=== PATIENT | female | born 1945 | race Two or more races ===

== ENCOUNTER 2018-05-18 05:21 | Inpatient (IN) | payer MEDICARE, MEDICAID ==
[~2018-05-18] VITALS: Ht 160 cm; Wt 68.1 kg
[2018-05-18 07:02] LABS: Basophils # (auto) 0 uL; Basophils % (auto) 0.2 % (0.0-2.0); Eosinophils # (auto) 0.1 uL; Eosinophils % (auto) 1.2 % (0.0-7.0); Hematocrit 32.2 % (36.0-46.0); Hemoglobin 10.7 g/dL (12.2-16.2); INR 1.1 (0.9-1.15); Lymphocytes # (auto) 0.3 uL; Lymphocytes % (auto) 2.4 % (10.0-50.0); Mean Corpuscular Hemoglobin 30.1 pg (28.0-32.0); Mean Corpuscular Hgb Conc. 33.2 g/dL (32.0-36.0); Mean Corpuscular Volume 90.5 fL (80.0-100.0); Monocytes # (auto) 0.3 uL; Monocytes % (auto) 2.6 % (0.0-12.0); Neutrophils # (auto) 10.5 uL; Neutrophils % (auto) 93.6 % (37.0-80.0); Partial Thromboplastin Time 30.8 sec (23.78-33.04); Platelet Count (auto) 132 10^3/uL (140-450); Prothrombin Time 11.7 sec (9.27-12.13); Red Blood Cells 3.56 10^6/uL (4.0-5.20); White Blood Cell 11.2 10^3/uL (4.4-10.8)
[2018-05-18 07:06] LABS: Alanine Aminotransferase 387 U/L (13-56); Albumin 2.9 g/dL (3.4-5.0); Amylase 24 U/L (25-115); Anion Gap 12 (5-15); Aspartate Aminotransferase 270 U/L (15-37); Blood Urea Nitrogen 52 mg/dL (7-18); Calcium 8.4 mg/dL (8.5-10.1); Carbon Dioxide 20 mmol/L (21-32); Chloride 107 mmol/L (98-107); GFR African American 26 mL/min; GFR Non-African American 21 mL/min; Glucose 173 mg/dL (74-106); Lipase 123 U/L (73-393); Magnesium 2.3 mg/dL (1.6-2.6); Potassium 4.4 mmol/L (3.5-5.1); Sodium 139 mmol/L (136-145)
[2018-05-18 07:11] LABS: Alkaline Phosphatase 258 U/L (45-117); Bilirubin, Total 3.7 mg/dL (0.2-1.0); Total Protein 6.7 g/dL (6.4-8.2)
[2018-05-18] MEDS ORDERED: SODIUM CHLORIDE 0.9% 1,000 ML IV ONE (07:15)
[2018-05-18] MEDS ORDERED: DEXTROSE (50%) 50ML SYRG IV PRN (10:00)
[2018-05-18] MEDS ORDERED: TEMAZEPAM 15 MG CAP PO PRN (10:00)
[2018-05-18] MEDS ORDERED: NITROGLYCERIN 0.4 MG SL TAB SL PRN (10:00)
[2018-05-18] MEDS ORDERED: MORPHINE SULF(PF) 0.5MG/ML 10ML VIAL IV PRN (10:00)
[2018-05-18] MEDS ORDERED: PROMETHAZINE HCL 25 MG/ML 1ML IV PRN (10:00)
[2018-05-18] MEDS ORDERED: NALBUPHINE HCL 10 MG/1ml INJECTION IV PRN ×2 (10:00)
[2018-05-18] MEDS ORDERED: cefTRIAXone 1GM/10ml IVPUSH 10 ML IV ONE (10:00)
[2018-05-18] MEDS ORDERED: LORazepam 0.5 MG TAB PO PRN (10:00)
[2018-05-18] MEDS ORDERED: PIPERACILLIN-TAZOB 2.25GM 50 ML IV ONE (10:15)
[2018-05-18] MEDS: SODIUM CHLORIDE 0.9% 1,000 ML IV SCH ×2 (12:11→19:46)
[2018-05-18] MEDS: PANTOPRAZOLE 40 MG TAB PO SCH (12:40)
[2018-05-18] MEDS: ACCU-CHEK COMFORT CURVE STRIP VI SCH ×3 (12:45→23:38)
[2018-05-18] MEDS: InsuLIN REG 1unit/0.01ml Soln (100units/ml) SC SCH ×3 (12:50→23:38)
[2018-05-18 13:17] LABS: Hematocrit 30.6 % (36.0-46.0); Hemoglobin 9.9 g/dL (12.2-16.2)
[2018-05-18] MEDS: APIXABAN 5 MG TAB PO SCH ×2 (13:50→23:38)
[2018-05-18] MEDS: metroNIDAZOLE 500MG/100ML 100 ML IV SCH ×3 (14:31→23:38)
[2018-05-18] MEDS: PIPERACILLIN-TAZOB 2.25GM 50 ML IV SCH (18:00)
[2018-05-18 18:21] VITALS: BP 153/68
[2018-05-18 19:55] LABS: Hematocrit 29.8 % (36.0-46.0); Hemoglobin 9.7 g/dL (12.2-16.2)
[2018-05-18 22:00] VITALS: BP 156/68
[2018-05-19] VITALS (7 sets, daily range): BP systolic 146–164; BP diastolic 57–93
[2018-05-19] MEDS: PIPERACILLIN-TAZOB 2.25GM 50 ML IV SCH ×4 (01:08→18:21)
[2018-05-19 01:15] LABS: Hematocrit 27.3 % (36.0-46.0); Hemoglobin 9.1 g/dL (12.2-16.2)
[2018-05-19] MEDS: metroNIDAZOLE 500MG/100ML 100 ML IV SCH ×4 (05:21→23:56)
[2018-05-19] MEDS: SODIUM CHLORIDE 0.9% 1,000 ML IV SCH ×2 (05:46→15:46)
[2018-05-19] MEDS: InsuLIN REG 1unit/0.01ml Soln (100units/ml) SC SCH ×4 (05:57→23:57)
[2018-05-19] MEDS: ACCU-CHEK COMFORT CURVE STRIP VI SCH ×4 (05:58→23:57)
[2018-05-19 07:16] LABS: Basophils # (auto) 0.1 uL; Basophils % (auto) 0.4 % (0.0-2.0); Eosinophils # (auto) 0.5 uL; Hematocrit 29.5 % (36.0-46.0); Hemoglobin 9.7 g/dL (12.2-16.2); Lymphocytes # (auto) 0.8 uL; Lymphocytes % (auto) 5.7 % (10.0-50.0); Mean Corpuscular Hemoglobin 29.7 pg (28.0-32.0); Mean Corpuscular Hgb Conc. 32.9 g/dL (32.0-36.0); Mean Corpuscular Volume 90.1 fL (80.0-100.0); Monocytes # (auto) 0.6 uL; Monocytes % (auto) 4.4 % (0.0-12.0); Neutrophils # (auto) 11.5 uL; Neutrophils % (auto) 85.5 % (37.0-80.0); Platelet Count (auto) 138 10^3/uL (140-450); Red Blood Cells 3.27 10^6/uL (4.0-5.20); Red Cell Distribution Width 18.1 % (11.8-14.3); White Blood Cell 13.4 10^3/uL (4.4-10.8)
[2018-05-19 08:38] LABS: Albumin 2.3 g/dL (3.4-5.0); Amylase 22 U/L (25-115); BUN/Creatinine Ratio 20.5; Bilirubin, Total 1.5 mg/dL (0.2-1.0); Calcium 8.1 mg/dL (8.5-10.1); Lipase 83 U/L (73-393); Potassium 4.2 mmol/L (3.5-5.1); Total Protein 5.9 g/dL (6.4-8.2)
[2018-05-19] MEDS ORDERED: cefTRIAXone 1GM/10ml IVPUSH 10 ML IV SCH (09:00)
[2018-05-19] MEDS: APIXABAN 5 MG TAB PO SCH ×3 (10:00→22:41)
[2018-05-19] MEDS: PANTOPRAZOLE 40 MG TAB PO SCH (10:13)
[2018-05-19] MEDS ORDERED: AMLO5TAB2 PO (12:02)
[2018-05-19] MEDS ORDERED: POTA10TA34 PO (12:02)
[2018-05-19] MEDS ORDERED: LORA-654 PO (12:02)
[2018-05-19] MEDS ORDERED: POTA10TA51 PO (12:02)
[2018-05-19] MEDS ORDERED: FURO40TA4 PO (12:02)
[2018-05-19] MEDS ORDERED: SIMV-13 PO (12:02)
[2018-05-19] MEDS ORDERED: METO25TA5 PO (12:02)
[2018-05-19] MEDS ORDERED: METF-370 PO (12:02)
[2018-05-19] MEDS ORDERED: RIVA10TA PO (12:02)
[2018-05-19] MEDS ORDERED: LEVO125T7 PO (12:02)
[2018-05-19] MEDS ORDERED: METOPROLOL TARTRATE 25 MG TAB PO ONE (13:45)
[2018-05-19] MEDS ORDERED: amLODIPine BESYLATE 5 MG TAB PO ONE (13:45)
[2018-05-19] MEDS: METOPROLOL TARTRATE 25 MG TAB PO SCH (22:41)
[2018-05-19] MEDS: amLODIPine BESYLATE 5 MG TAB PO SCH (22:42)
[2018-05-20] MEDS: PIPERACILLIN-TAZOB 2.25GM 50 ML IV SCH ×5 (01:02→23:57)
[2018-05-20] MEDS: SODIUM CHLORIDE 0.9% 1,000 ML IV SCH ×3 (01:46→21:35)
[2018-05-20 05:00] VITALS: BP 142/67
[2018-05-20] MEDS: metroNIDAZOLE 500MG/100ML 100 ML IV SCH ×4 (05:21→23:56)
[2018-05-20] MEDS: InsuLIN REG 1unit/0.01ml Soln (100units/ml) SC SCH ×4 (05:57→23:57)
[2018-05-20] MEDS: ACCU-CHEK COMFORT CURVE STRIP VI SCH ×4 (05:57→23:57)
[2018-05-20 07:07] LABS: Basophils # (auto) 0 uL; Basophils % (auto) 0.5 % (0.0-2.0); Eosinophils # (auto) 0.5 uL; Eosinophils % (auto) 5.9 % (0.0-7.0); Hematocrit 32.4 % (36.0-46.0); Hemoglobin 10.6 g/dL (12.2-16.2); Lymphocytes # (auto) 0.9 uL; Lymphocytes % (auto) 9.7 % (10.0-50.0); Mean Corpuscular Hgb Conc. 32.8 g/dL (32.0-36.0); Mean Corpuscular Volume 91.6 fL (80.0-100.0); Monocytes # (auto) 0.6 uL; Monocytes % (auto) 6.2 % (0.0-12.0); Neutrophils # (auto) 7.1 uL; Neutrophils % (auto) 77.7 % (37.0-80.0); Nucleated Red Blood Cells % 0.1 %; Platelet Count (auto) 156 10^3/uL (140-450); Red Blood Cells 3.53 10^6/uL (4.0-5.20); Red Cell Distribution Width 18.1 % (11.8-14.3); White Blood Cell 9.1 10^3/uL (4.4-10.8)
[2018-05-20 07:10] LABS: Albumin 2.2 g/dL (3.4-5.0); BUN/Creatinine Ratio 18.3; Bilirubin, Total 0.8 mg/dL (0.2-1.0); Calcium 8.5 mg/dL (8.5-10.1); Potassium 3.8 mmol/L (3.5-5.1); Total Protein 5.9 g/dL (6.4-8.2)
[2018-05-20 08:00] VITALS: BP 155/71
[2018-05-20 09:00] VITALS: BP 155/71
[2018-05-20] MEDS: APIXABAN 5 MG TAB PO SCH ×2 (10:00→21:35)
[2018-05-20] MEDS: METOPROLOL TARTRATE 25 MG TAB PO SCH ×2 (10:30→21:35)
[2018-05-20] MEDS: amLODIPine BESYLATE 5 MG TAB PO SCH ×2 (10:31→21:35)
[2018-05-20] MEDS: PANTOPRAZOLE 40 MG TAB PO SCH (10:31)
[2018-05-20 13:00] VITALS: BP 157/74
[2018-05-20 13:10] LABS: Urine Bacteria FEW /hpf (None Seen); Urine Blood 1+ /uL (Negative); Urine Specific Gravity 1.013 (1.001-1.035); Urine WBC 3 /hpf (0 - 5)
[2018-05-20 17:31] VITALS: BP 153/73
[2018-05-20 22:00] VITALS: BP 148/76
[2018-05-21 05:00] VITALS: BP 141/81
[2018-05-21] MEDS: metroNIDAZOLE 500MG/100ML 100 ML IV SCH ×3 (06:18→17:27)
[2018-05-21] MEDS: InsuLIN REG 1unit/0.01ml Soln (100units/ml) SC SCH ×4 (06:19→18:17)
[2018-05-21] MEDS: ACCU-CHEK COMFORT CURVE STRIP VI SCH ×3 (06:19→17:32)
[2018-05-21] MEDS: PIPERACILLIN-TAZOB 2.25GM 50 ML IV SCH ×3 (06:19→18:16)
[2018-05-21] MEDS: SODIUM CHLORIDE 0.9% 1,000 ML IV SCH ×2 (07:46→17:32)
[2018-05-21 09:00] VITALS: BP 146/67
[2018-05-21] MEDS: APIXABAN 5 MG TAB PO SCH ×2 (10:00→22:00)
[2018-05-21] MEDS: FUROSEMIDE 40 MG TAB PO SCH (10:12)
[2018-05-21] MEDS: PANTOPRAZOLE 40 MG TAB PO SCH (10:12)
[2018-05-21] MEDS: METOPROLOL TARTRATE 25 MG TAB PO SCH ×2 (10:13→22:19)
[2018-05-21] MEDS: amLODIPine BESYLATE 5 MG TAB PO SCH ×2 (10:13→22:20)
[2018-05-21 13:00] VITALS: BP 151/70
[2018-05-21 18:13] VITALS: BP 150/79
[2018-05-21 20:00] VITALS: BP 139/74
[2018-05-21 21:36] VITALS: BP 140/72
[2018-05-22] MEDS: PIPERACILLIN-TAZOB 2.25GM 50 ML IV SCH ×4 (00:33→18:13)
[2018-05-22] MEDS: metroNIDAZOLE 500MG/100ML 100 ML IV SCH ×4 (00:33→17:08)
[2018-05-22] MEDS: ACCU-CHEK COMFORT CURVE STRIP VI SCH ×4 (00:34→18:14)
[2018-05-22] MEDS: SODIUM CHLORIDE 0.9% 1,000 ML IV SCH ×2 (03:46→17:08)
[2018-05-22 05:38] VITALS: BP 140/71
[2018-05-22] MEDS: InsuLIN REG 1unit/0.01ml Soln (100units/ml) SC SCH ×4 (05:57→18:14)
[2018-05-22 08:23] VITALS: BP 177/78
[2018-05-22] MEDS: APIXABAN 5 MG TAB PO SCH ×2 (10:00→22:00)
[2018-05-22] MEDS: amLODIPine BESYLATE 5 MG TAB PO SCH ×2 (10:29→22:15)
[2018-05-22] MEDS: METOPROLOL TARTRATE 25 MG TAB PO SCH ×2 (10:29→22:15)
[2018-05-22] MEDS: FUROSEMIDE 40 MG TAB PO SCH (10:29)
[2018-05-22] MEDS: PANTOPRAZOLE 40 MG TAB PO SCH (10:30)
[2018-05-22 11:57] VITALS: BP 158/73
[2018-05-22 17:14] VITALS: BP 149/68
[2018-05-22 20:00] VITALS: BP 146/72
[2018-05-22 21:53] VITALS: BP 146/72
[2018-05-23] MEDS: SODIUM CHLORIDE 0.9% 1,000 ML IV SCH ×3 (00:37→19:46)
[2018-05-23] MEDS: ACCU-CHEK COMFORT CURVE STRIP VI SCH ×4 (00:38→18:04)
[2018-05-23] MEDS: metroNIDAZOLE 500MG/100ML 100 ML IV SCH ×4 (00:38→18:04)
[2018-05-23] MEDS: PIPERACILLIN-TAZOB 2.25GM 50 ML IV SCH ×4 (00:38→18:04)
[2018-05-23 05:00] VITALS: BP 153/62
[2018-05-23] MEDS: InsuLIN REG 1unit/0.01ml Soln (100units/ml) SC SCH ×4 (06:00→18:00)
[2018-05-23 06:58] LABS: INR 1.05 (0.9-1.15); Partial Thromboplastin Time 28.7 sec (23.78-33.04); Prothrombin Time 11.2 sec (9.27-12.13)
[2018-05-23 09:00] VITALS: BP 159/69
[2018-05-23] MEDS: APIXABAN 5 MG TAB PO SCH ×2 (10:00→22:00)
[2018-05-23] MEDS: FUROSEMIDE 40 MG TAB PO SCH (10:27)
[2018-05-23] MEDS: METOPROLOL TARTRATE 25 MG TAB PO SCH ×2 (10:28→22:00)
[2018-05-23] MEDS: PANTOPRAZOLE 40 MG TAB PO SCH (10:29)
[2018-05-23] MEDS: amLODIPine BESYLATE 5 MG TAB PO SCH ×2 (10:29→22:00)
[2018-05-23 13:00] VITALS: BP_SYST 126; BP_SYST 157; BP_DIAS 67; BP_DIAS 79
[2018-05-23 14:34] LABS: Basophils # (auto) 0 uL; Basophils % (auto) 0.6 % (0.0-2.0); Eosinophils # (auto) 0.2 uL; Eosinophils % (auto) 3.3 % (0.0-7.0); Hematocrit 38.7 % (36.0-46.0); Hemoglobin 12.8 g/dL (12.2-16.2); Lymphocytes # (auto) 1.1 uL; Lymphocytes % (auto) 14.5 % (10.0-50.0); Mean Corpuscular Hemoglobin 29.7 pg (28.0-32.0); Mean Corpuscular Hgb Conc. 33.1 g/dL (32.0-36.0); Mean Corpuscular Volume 89.7 fL (80.0-100.0); Monocytes # (auto) 0.4 uL; Monocytes % (auto) 5.1 % (0.0-12.0); Neutrophils # (auto) 5.7 uL; Neutrophils % (auto) 76.5 % (37.0-80.0); Platelet Count (auto) 223 10^3/uL (140-450); Red Blood Cells 4.31 10^6/uL (4.0-5.20); Red Cell Distribution Width 17.7 % (11.8-14.3); White Blood Cell 7.4 10^3/uL (4.4-10.8)
[2018-05-23 14:58] LABS: BUN/Creatinine Ratio 11.8; Calcium 8.3 mg/dL (8.5-10.1); Potassium 3.3 mmol/L (3.5-5.1)
[2018-05-23 17:00] VITALS: BP 127/56
[2018-05-23 20:00] VITALS: BP 124/65
[2018-05-23 22:00] VITALS: BP 129/65
[2018-05-24] VITALS (7 sets, daily range): BP systolic 123–145; BP diastolic 60–70
[2018-05-24] MEDS: ACCU-CHEK COMFORT CURVE STRIP VI SCH ×4 (00:25→18:03)
[2018-05-24] MEDS: InsuLIN REG 1unit/0.01ml Soln (100units/ml) SC SCH ×4 (00:25→18:28)
[2018-05-24] MEDS: metroNIDAZOLE 500MG/100ML 100 ML IV SCH ×4 (00:25→18:03)
[2018-05-24] MEDS: PIPERACILLIN-TAZOB 2.25GM 50 ML IV SCH ×4 (00:25→18:57)
[2018-05-24] MEDS: SODIUM CHLORIDE 0.9% 1,000 ML IV SCH ×2 (05:41→15:38)
[2018-05-24 08:03] LABS: Basophils # (auto) 0.1 uL; Basophils % (auto) 0.9 % (0.0-2.0); Eosinophils # (auto) 0.3 uL; Eosinophils % (auto) 4.7 % (0.0-7.0); Lymphocytes # (auto) 1.4 uL; Lymphocytes % (auto) 19.2 % (10.0-50.0); Mean Corpuscular Hemoglobin 28.7 pg (28.0-32.0); Mean Corpuscular Hgb Conc. 32.3 g/dL (32.0-36.0); Mean Corpuscular Volume 88.9 fL (80.0-100.0); Monocytes # (auto) 0.5 uL; Monocytes % (auto) 6.6 % (0.0-12.0); Neutrophils # (auto) 5.1 uL; Neutrophils % (auto) 68.6 % (37.0-80.0); Platelet Count (auto) 246 10^3/uL (140-450); Red Blood Cells 4.17 10^6/uL (4.0-5.20); Red Cell Distribution Width 17.7 % (11.8-14.3); White Blood Cell 7.4 10^3/uL (4.4-10.8)
[2018-05-24 08:23] LABS: BUN/Creatinine Ratio 12.7; Calcium 8.5 mg/dL (8.5-10.1)
[2018-05-24] MEDS: amLODIPine BESYLATE 5 MG TAB PO SCH ×2 (09:11→22:00)
[2018-05-24] MEDS: PANTOPRAZOLE 40 MG TAB PO SCH (09:12)
[2018-05-24] MEDS: METOPROLOL TARTRATE 25 MG TAB PO SCH ×2 (09:12→22:00)
[2018-05-24] MEDS: FUROSEMIDE 40 MG TAB PO SCH (09:12)
[2018-05-24] MEDS: POTASSIUM CHL 10 Meq TABLET PO SCH ×6 (11:54→15:42)
[2018-05-24] MEDS: APIXABAN 5 MG TAB PO SCH ×2 (12:21→22:00)
[2018-05-24] MEDS ORDERED: DIPHENOXYLATE W/ATROPINE 2.5 MG TAB PO PRN (18:30)
[2018-05-25] MEDS: SODIUM CHLORIDE 0.9% 1,000 ML IV SCH ×2 (01:46→11:46)
[2018-05-25 05:01] VITALS: BP 140/61
[2018-05-25] MEDS: PIPERACILLIN-TAZOB 2.25GM 50 ML IV SCH ×3 (05:49→12:00)
[2018-05-25] MEDS: metroNIDAZOLE 500MG/100ML 100 ML IV SCH ×3 (05:49→12:00)
[2018-05-25] MEDS: InsuLIN REG 1unit/0.01ml Soln (100units/ml) SC SCH ×3 (06:19→12:00)
[2018-05-25] MEDS: ACCU-CHEK COMFORT CURVE STRIP VI SCH ×3 (06:19→12:00)
[2018-05-25 07:31] LABS: Basophils # (auto) 0.1 uL; Eosinophils # (auto) 0.4 uL; Eosinophils % (auto) 5.1 % (0.0-7.0); Hematocrit 35.2 % (36.0-46.0); Hemoglobin 11.6 g/dL (12.2-16.2); Lymphocytes # (auto) 1.3 uL; Lymphocytes % (auto) 16.5 % (10.0-50.0); Mean Corpuscular Hemoglobin 29.9 pg (28.0-32.0); Mean Corpuscular Hgb Conc. 33.1 g/dL (32.0-36.0); Mean Corpuscular Volume 90.4 fL (80.0-100.0); Monocytes # (auto) 0.5 uL; Monocytes % (auto) 6.1 % (0.0-12.0); Neutrophils # (auto) 5.4 uL; Neutrophils % (auto) 71.3 % (37.0-80.0); Nucleated Red Blood Cells % 0.1 %; Platelet Count (auto) 254 10^3/uL (140-450); Red Blood Cells 3.89 10^6/uL (4.0-5.20); Red Cell Distribution Width 17.9 % (11.8-14.3); White Blood Cell 7.6 10^3/uL (4.4-10.8)
[2018-05-25 07:45] LABS: Anion Gap 17 (5-15); BUN/Creatinine Ratio 11.4; Blood Urea Nitrogen 28 mg/dL (7-18); Carbon Dioxide 14 mmol/L (21-32); Chloride 117 mmol/L (98-107); GFR African American 25 mL/min; GFR Non-African American 21 mL/min; Glucose 193 mg/dL (74-106); Potassium 3.8 mmol/L (3.5-5.1); Sodium 148 mmol/L (136-145)
[2018-05-25 08:32] VITALS: BP 134/112
[2018-05-25 08:59] VITALS: BP 150/68
[2018-05-25] MEDS: amLODIPine BESYLATE 5 MG TAB PO SCH (09:27)
[2018-05-25] MEDS: APIXABAN 5 MG TAB PO SCH (09:27)
[2018-05-25] MEDS: PANTOPRAZOLE 40 MG TAB PO SCH (09:28)
[2018-05-25] MEDS: FUROSEMIDE 40 MG TAB PO SCH (09:28)
[2018-05-25] MEDS: METOPROLOL TARTRATE 25 MG TAB PO SCH (09:28)
[2018-05-25 12:46] VITALS: BP 157/76
== END 2018-05-25 12:40 | disposition home or self-care (01) | DRG 720 ==
LOC: ER 05:24 → TELE 05:25 → TELE-WESTW 18:30
PROVIDERS: ADMIT Internal Medicine; ATTEND Specialist
DX: A41.9 Sepsis, unspecified organism (principal); N17.9 Acute kidney failure, unspecified; S22.080A Wedge compression fracture of T11-T12 vertebra, initial encounter for closed fracture; E44.0 Moderate protein-calorie malnutrition; K80.62 Calculus of gallbladder and bile duct with acute cholecystitis without obstruction; I13.0 Hypertensive heart and chronic kidney disease with heart failure and stage 1 through stage 4 chronic kidney disease, or unspecified chronic kidney disease; S32.010A Wedge compression fracture of first lumbar vertebra, initial encounter for closed fracture; K82.1 Hydrops of gallbladder; N39.0 Urinary tract infection, site not specified; D63.1 Anemia in chronic kidney disease; E11.21 Type 2 diabetes mellitus with diabetic nephropathy; E03.9 Hypothyroidism, unspecified; E11.22 Type 2 diabetes mellitus with diabetic chronic kidney disease; N18.3 Chronic kidney disease, stage 3 (moderate); E78.5 Hyperlipidemia, unspecified; I08.0 Rheumatic disorders of both mitral and aortic valves; I25.10 Atherosclerotic heart disease of native coronary artery without angina pectoris; K59.01 Slow transit constipation; M43.16 Spondylolisthesis, lumbar region; R32 Unspecified urinary incontinence; Z86.718 Personal history of other venous thrombosis and embolism; Z68.26 Body mass index [BMI] 26.0-26.9, adult; Z95.0 Presence of cardiac pacemaker; Z90.89 Acquired absence of other organs
CPT/HCPCS: 36415; 51702; 71045; 74176; 76705; 76775; 78226; 80048; 80053; 81001; 82150; 82378; 82550; 82962; 83036; 83690; 83735; 83880; 84443; 84484; 85014; 85018; 85025; 85045; 85610; 85652; 85730; 86141; 86850; 86900; 86901; 87086; 93005; 93306; 96374; 96375; J1815; J2543; J3490